=== PATIENT | male | born 2000 | race Caucasian/White ===

== ENCOUNTER 2024-09-06 09:07 | Emergency (ER) | payer OTHER ==
[~2024-09-06] VITALS: Ht 177.8 cm; Wt 84.0 kg
[2024-09-06 09:30] VITALS: O2SAT 99
[2024-09-06] MEDS ORDERED: IBUP-2028 MT (10:47)
[2024-09-06 11:10] VITALS: BP 115/70; PULSE 70; RESP 16; TEMP 36.7; O2SAT 99
== END 2024-09-06 11:11 | disposition home or self-care (01) ==
LOC: ER 09:07
DX: M25.472 Effusion, left ankle (principal)
CPT/HCPCS: 73630; 99283